=== PATIENT | female | born 1995 | race Two or more races ===

== ENCOUNTER 2022-07-16 13:40 | Inpatient (IN) | payer SELFPAY ==
[~2022-07-16] VITALS: Ht 154.9 cm; Wt 99.8 kg
--- NOTE | 2022-07-16 13:40 | NUR ---
BIBS FOR BODY PAIN. A/O X 3, TOLERATING WELL ON ROOM AIR.
--- NOTE | 2022-07-16 15:31 | NUR ---
URINE SAMPLE OBTAINED
[2022-07-16] MEDS ORDERED: HYDROMORPHONE 1 MG/1 ML DISP.SYRIN IV ONE ×3 (16:00→21:00)
[2022-07-16] MEDS ORDERED: oxyCODONE/APAP (5/325 MG) 1 UDTAB TABLET PO ONE (16:00)
[2022-07-16] MEDS ORDERED: oxyCODONE/APAP (5/325 MG) 1 UDTAB TABLET ONE (16:19)
--- NOTE | 2022-07-16 16:38 | NUR ---
Patient pending IV start with midline nurse
--- NOTE | 2022-07-16 16:54 | NUR ---
[facility] NURSE ETA 1800
[2022-07-16] MEDS ORDERED: ONDANSETRON 4 MG TAB.RAPDIS ONE (17:34)
[2022-07-16] MEDS ORDERED: ONDANSETRON 4 MG TAB.RAPDIS SL ONE (18:00)
[2022-07-16] MEDS ORDERED: HYDROMORPHONE 1 MG/1 ML DISP.SYRIN ONE ×2 (18:10→19:29)
[2022-07-16] MEDS ORDERED: diphenhydrAMINE HCL 50 MG/ML VIAL ONE ×3 (18:12→21:01)
[2022-07-16] MEDS ORDERED: ONDANSETRON HCL/PF 4 MG/2 ML VIAL IV ONE ×2 (18:30→21:00)
[2022-07-16] MEDS ORDERED: diphenhydrAMINE HCL 50 MG/ML VIAL IV ONE ×3 (18:30→21:00)
[2022-07-16] MEDS ORDERED: ONDANSETRON HCL/PF 4 MG/2 ML VIAL ONE ×2 (18:37→21:02)
[2022-07-16 18:41] LABS: ALBUMIN 3.8 g/dL (3.4-5.0); BILIRUBIN,TOTAL 0.2 mg/dL (0.2-1.0); CALCIUM, SERUM 9.7 mg/dL (8.5-10.1); CREATININE 0.6 mg/dL (0.6-1.3); MAGNESIUM 1.9 mg/dL (1.8-2.4); POTASSIUM 4.1 mmol/L (3.5-5.1); TOTAL PROTEIN, SERUM 8.4 g/dL (6.4-8.2)
--- NOTE | 2022-07-16 19:30 | NUR ---
Pt is noted in bed alert, responsive as report received from the off going RN that Pt came from home C/O Back, Leg and Hand pain and aslo Edema to Extimities with a Histpry off Sickle Cell. Pt care continue with Pain Mangement in progress.
[2022-07-16] MEDS ORDERED: HYDROMORPHONE INJ 2 MG/ML DISP.SYRIN ONE (21:02)
--- NOTE | 2022-07-16 21:10 | NUR ---
Pt remain full code with Benadyl 25mg , Dilaudid 1mg IVP and Zofran 4mg IVP given as ordered. Pt care continue as she will be reassessed for effectiveness while monitor closely.
[2022-07-16 21:12] LABS: BASOPHILS % (AUTO) 0.5 % (0.0-2.0); EOSINOPHILS % (AUTO) 0.2 % (0.0-6.0); HEMATOCRIT 30 % (33-45); HEMOGLOBIN 9.6 g/dL (11.5-14.8); LYMPHOCYTES # (AUTO) 2.3 K/uL (0.8-4.8); LYMPHOCYTES % (AUTO) 37.3 % (20.0-44.0); MEAN CORPUSCULAR HGB CONC 33 g/dl (31.0-36.0); MEAN CORPUSCULAR VOLUME 71 fL (82-100); MONOCYTES # (AUTO) 0.5 K/uL (0.1-1.30); MONOCYTES % (AUTO) 7.6 % (2.0-12.0); NEUTROPHILS # (AUTO) 3.4 K/uL (1.8-8.9); NEUTROPHILS % (AUTO) 54.4 % (43.0-81.0); PLATELET COUNT (AUTO) 404 K/uL (150-450); RED BLOOD CELL COUNT(AUTO) 4.19 MIL/uL (4.0-5.2); WHITE BLOOD COUNT (AUTO) 6.2 K/uL (4.3-11.0)
--- NOTE | 2022-07-16 21:54 | NUR ---
Pt care continue as she will be admitted with IVF 0.9NS [id number] therapy in progress as ordered.
[2022-07-16] MEDS ORDERED: IV NS 0.9% 1,000 ML IV ONE (22:00)
[2022-07-16] MEDS ORDERED: MORPHINE SULFATE INJ 2 MG/ML DISP.SYRIN IV PRN (22:00)
[2022-07-16] MEDS ORDERED: ACETAMINOPHEN 325 MG TABLET PO PRN (22:00)
[2022-07-16 22:03] LABS: LYMPHOCYTES % (MANUAL) 43 % (16-48); MONOCYTES % (MANUAL) 8 % (0-11.0); NEUTROPHILS % (MANUAL) 43 (42-76); REACTIVE LYMPHOCYTES 6 % (0-0)
--- NOTE | 2022-07-16 22:52 | NUR ---
RM 314-2
[2022-07-16] MEDS: IV NS 0.9% 1,000 ML IV SCH (23:56)
[2022-07-17] VITALS: BP 113/72
--- NOTE | 2022-07-17 00:11 | NUR ---
MS RN NOTE PER PATIENT, MORPHINE DOESN'T WORK FOR HER AND SHE USUALLY GET'S DILAUDID 2 MG IV, WELL BENADRYL AND ZANAX 2 MG PO FOR ANXIETY/SLEEP. CONTACTED PAEDIATRIC SURGEON MD SHANNON ROB REGARDING THIS, HOWEVER, HE STATED HE WILL NOT BE MAKING CHANGES TO PAIN MEDICATION ORDER OR ADDING ORDER FOR BENADRYL AND ZANAX. EXPLAINED THIS TO PATIENT AND SHE STATED THAT IF SHE'S ONLY GETTING MORPHINE SHE WILL NEED BENADRYL BECAUSE IT MAKES HER ITCHY AND GET A RASH, ALSO STATES SHE HASN'T BEEN ABLE TO TOLERATED ANYTHING PO WITHOUT NAUSEA. CONTACTED PAEDIATRIC SURGEON MD AGAIN, PER SHANNON CHANG ONLY ONE TIME ORDER OF BENADRYL 50 MG IV, ORDER VERIFIED
[2022-07-17] MEDS ORDERED: diphenhydrAMINE HCL 50 MG/ML VIAL IV ONE ×3 (00:15→18:00)
--- NOTE | 2022-07-17 00:25 | NUR ---
MS WIRE TESTER NOTE PATIENT ARRIVED AT ABOUT 2330, ALERT/ORIENTED X 4, PT ABLE TO MAKE NEEDS KNOWN. PATIENT STABLE ON RA, NO S/S OF DISTRESS OR SOB NOTED, BREATHING EVEN AND UNLABORED. PATIENT IV ACCESS ON RIGHT UPPER ARM PICC LINE INTACT AND FLUSHING WELL. PATIENT FULLY VACCINATED FOR COVID BUT PATIENT REFUSES FLU VACCINE. PATIENT BELONGINGS DOCUMENTED AND SHEET PLACED IN CHART. ORIENTED PATIENT TO ROOM AND HOW TO USE CALL LIGHT. PATIENT AMBULATORY WITH STEADY GAIT. PATIENT CONTINUES TO COMPLAIN ABOUT INPATIENT MEDICATIONS, STATED SHE WANTS TO TALK TO CHARGE AND COMPLAIN REGARDING CONTRACT ADMINISTRATION COORDINATOR MD BECAUSE HE WON'T APPROVED ORDER FOR DILAUDID, BENADRYL AND XANAX, CHARGE ZORAIDA SPOKE TO PATIENT. SAFETY MEASURES IN PLACE: CALL LIGHT WITHIN REACH, SIDE RAILS UP X 2, BED LOCKED IN LOWEST POSITION, BED ALARM ON. WILL CONTINUE TO MONITOR PATIENT
[2022-07-17] MEDS: ONDANSETRON HCL/PF 4 MG/2 ML VIAL IVP PRN ×3 (00:31→21:27)
[2022-07-17] MEDS: MORPHINE SULFATE INJ 4 MG/ML DISP.SYRIN IV PRN ×2 (00:31→04:32)
[2022-07-17] MEDS: ENOXAPARIN SODIUM 40 MG/0.4 ML DISP.SYRIN SQ SCH ×2 (00:34→21:22)
--- NOTE | 2022-07-17 03:55 | NUR ---
MS RN NOTE PATIENT C/O UNBEARABLE PAIN, WANTS NURSE TO ASK ATHLETIC INSTRUCTOR MD FOR MORE PAIN MEDICATIONS, EXPLAINED TO PATIENT THAT HER NEXT MORPHINE IS DUE AT 0431, PATIENT ADAMANT TO CONTACT DR. MANCERA ATHLETIC INSTRUCTOR SHANNON ROB, HE WILL NOT BE ADDING ANY PAIN MED ORDERS MORPHINE IS ALMOST DUE
[2022-07-17] MEDS ORDERED: ALPR2TAB2 PO (04:40)
[2022-07-17] MEDS ORDERED: OXYC-133 PO (04:40)
[2022-07-17] MEDS ORDERED: HYDR500C2 PO (04:40)
[2022-07-17] MEDS: IV NS 0.9% 1,000 ML IV SCH ×3 (05:28→18:34)
--- NOTE | 2022-07-17 06:24 | NUR ---
MS RN NOTE PATIENT SWABBED FOR MRSA BILATERAL NARES
--- NOTE | 2022-07-17 06:51 | NUR ---
MS RN CLOSING NOTE PATIENT AWAKE IN BED, ALERT/ORIENTED X 4, PT ABLE TO MAKE NEEDS KNOWN. PATIENT STABLE ON RA, NO S/S OF DISTRESS OR SOB NOTED, BREATHING EVEN AND UNLABORED. LEDA PICC LINE INTACT AND INFUSING NS @ 150 ML/HR. PATIENT AMBULATORY WITH STEADY GAIT TO BATHROOM. PATIENT UPSET THAT REGIONAL HR MANAGER MD DID NOT CHANGE PAIN MEDICATION TO DILAUDID AND THAT SHE HAS NO ORDER FOR XANAX AND BENADRYL, PT STATES SHE WANTS TO SPEAK TO SENIOR UI DESIGNER REGARDING THIS, FEELS MD IS BEING NEGLIGENT, NOTIFIED COLLEGE RECRUITER ZORAIDA WHO SPOKE TO PATIENT EARLIER. PATIENT REFUSED SKIN ASSESSMENT AND TO CHANGE INTO GOWN, STATED SHE HAS NO WOUNDS OR OPEN SKIN. MEDICATIONS GIVEN ORDERED, PT NEEDS MET THROUGHOUT SHIFT. SAFETY MEASURES IN PLACE: CALL LIGHT WITHIN REACH, SIDE RAILS UP X 2, BED LOCKED IN LOWEST POSITION. WILL ENDORSE TO DAYSHIFT RN FOR CONTINUITY OF CARE
--- NOTE | 2022-07-17 07:06 | NUR ---
MS RN OPENING NOTES RECEIVED PATIENT SLEEPING IN BED, A/Ox4 ABLE TO MAKE NEEDS KNOWN. ON ROOM AIR, NO S/S OF RESPIRATORY DISTRESS. IV ACCESS LEDA MIDLINE RUNNING NS@150 ML/HR, INTACT AND PATENT. CONTINENT HAS BATHROOM PRIVILEGES. NO S/S OF PAIN OR DISCOMFORT. SKIN UNABLE TO ACCESS, PATIENT IS REFUSING SKIN ASSESSMENT AT THIS TIME. SAFETY MEASURES IN PLACE: BED LOCKED AND IN LOWEST POSITION, HOB ELEVATED, SIDE RAILS UPx2, CALL LIGHT WITHIN REACH. WILL CONTINUE TO MONITOR.
[2022-07-17 08:00] VITALS: BP 104/73
[2022-07-17] MEDS: HYDROMORPHONE INJ 2 MG/ML DISP.SYRIN IV PRN ×4 (08:52→21:15)
--- NOTE | 2022-07-17 09:28 | NUR ---
RN NOTES PATIENT COMPLAINED OF PAIN 10/10 GENERALIZED. MD NOTIFIED OF PATIENT WANTING DILAUDID INSTEAD OF MORPHINE DUE TO MORPHINE CAUSING ITCHINESS. MD ORDERED PRN DILAUDID 2MG Q4H. PRN DILAUDID ADMINISTERED. WILL CONTINUE TO MONITOR.
[2022-07-17] MEDS ORDERED: HYDROCODONE/APAP 10/325MG TABLET PO PRN (12:30)
--- NOTE | 2022-07-17 12:34 | NUR ---
RN NOTES PATIENT REQUESTED MORE PAIN MEDICINE. EXPLAINED TO PATIENT THAT DILAUDID IS Q4 HOURS. PATIENT REQUESTED FOR IT TO BE CHANGED. MD NOTIFIED. ORDERED PERCOCET 5 MG FOR PATIENT. PAIN MEDICATION TAKEN FROM OMNICELL BUT PATIENT CHANGED HER MIND AND WANTED TO WAIT FOR DILAUDID. WILL CONTINUE TO MONITOR.
--- NOTE | 2022-07-17 13:39 | NUR ---
RN NOTES PATIENT COMPLAINED 8/10 PAIN, PRN DILAUDID ADMINISTERED. PATIENT COMPLAINED OF NAUSEA, PRN ZOFRAN ADMINISTERED. WILL CONTINUE TO MONITOR.
[2022-07-17 16:00] VITALS: BP 95/62
--- NOTE | 2022-07-17 18:14 | NUR ---
RN NOTES PATIENT COMPLAINED OF PAIN, PRN DILAUDID ADMINISTERED. PATIENT ALSO COMPLAINING OF ITCHINESS, MD NOTIFIED, ORDERED BENADRYL 25 MG ONE TIME IV. ADMINISTERED. WILL CONTINUE TO MONITOR.
--- NOTE | 2022-07-17 19:45 | NUR ---
RN Opening Notes Received pt in bed, awake, talking on phone, resting comfortably. AOx4, able to make needs known. On RA and tolerating well. No SOB noted. No s/sx of respiratory distress noted. IV access in LEDA Midline #18G running NS @ 150 mL/hr. Safety precautions in place: bed in lowest, locked position, siderails upX2, and brakes on. Table and call light within reach. All needs met at this time.
[2022-07-17 20:00] VITALS: BP 114/64
--- NOTE | 2022-07-17 20:54 | NUR ---
RN Notes Patient requesting pain medication while resting in bed watching videos on phone. Offered patient percocet but patient said "I cannot swallow anything." Made patient aware that dilaudid is not able to be given until 25 minutes. Patient agreeable.
--- NOTE | 2022-07-17 21:15 | NUR ---
TEJA Notes Administered morphine for pain 12/05 per order. VS WNL. Addendum: 07/18/22 at 0116 by MELISA MOON RN should say dilaudid not morphine
--- NOTE | 2022-07-17 21:21 | NUR ---
RN Notes Tried to administer lovenox to patient but she refused and said "I dont need that. I just need my pain medication." Educated on risk and benefits but still refused.
--- NOTE | 2022-07-17 21:45 | NUR ---
RN Notes Patient requested zofran. After administering zofran, patient told nurse "I am going to need 50 mg of benadryl IV because zofran makes me itchy." Dr. Valdez made aware. No new orders at this time.
[2022-07-18] MEDS: IV NS 0.9% 1,000 ML IV SCH ×4 (01:00→20:35)
[2022-07-18] MEDS: HYDROMORPHONE INJ 2 MG/ML DISP.SYRIN IV PRN ×6 (01:15→21:23)
--- NOTE | 2022-07-18 01:15 | NUR ---
RN Notes Administer dilaudid for pain per MD order. Patient refused percocet again. VS WNL.
--- NOTE | 2022-07-18 05:22 | NUR ---
RN Notes Administered dilaudid for pain per MD order. Patient refused percocet again because she "feels nauseous." VS WNL.
[2022-07-18] MEDS: ONDANSETRON HCL/PF 4 MG/2 ML VIAL IVP PRN ×4 (05:27→21:34)
--- NOTE | 2022-07-18 05:27 | NUR ---
RN Notes Patient requested zofran for nausea. Patient made aware that the doctor is not going to order benadryl for her itchiness and patient agreed to still get zofran.
--- NOTE | 2022-07-18 06:46 | NUR ---
RN Closing Notes Pt in bed, asleep, awakens to verbal stimuli. AOx4, able to make needs known. On RA and tolerating well. No SOB noted. No s/sx of respiratory distress noted. IV access in LEDA Midline #18G running NS @ 150 mL/hr. All orders carried out. All needs met. Pt kept clean and dry. Treated pain and nausea throughout shift. Safety precautions in place: bed in lowest, locked position, siderails upX2, and brakes on. Table and call light within reach. Will endorse to oncoming shift for TWYLA.
--- NOTE | 2022-07-18 08:17 | NUR ---
MS RN OPENING NOTES PATIENT IN BED RESTING. ALERT AND ORIENTED x4. ON RA, TOLERATING WELL WITH NO SOB OR RESPIRATORY DISTRESS NOTED. BREATHING EVEN AND UNLABORED. LEDA Midline #18G INTACT AND FLUSHING, RUNNING NS @ 150 mL/hr. ALL SAFETY PRECAUTIONS IN PLACE WITH BED IN LOWEST, LOCKED POSITION, SIDERAILS UP X 2, AND TABLE AND CALL LIGHT WITHIN REACH. WILL CONTINUE TO MONITOR.
--- NOTE | 2022-07-18 08:20 | NUR ---
RN NOTES BLOOD DRAWN FOR LAB WORK FROM MIDLINE.
[2022-07-18 08:24] VITALS: BP 119/69
[2022-07-18 08:40] LABS: BASOPHILS % (AUTO) 0.4 % (0.0-2.0); EOSINOPHILS % (AUTO) 1.3 % (0.0-6.0); HEMATOCRIT 27 % (33-45); HEMOGLOBIN 8.6 g/dL (11.5-14.8); LYMPHOCYTES # (AUTO) 2.3 K/uL (0.8-4.8); MEAN CORPUSCULAR HGB CONC 32 g/dl (31.0-36.0); MEAN CORPUSCULAR VOLUME 71 fL (82-100); MONOCYTES # (AUTO) 0.4 K/uL (0.1-1.30); MONOCYTES % (AUTO) 8.1 % (2.0-12.0); NEUTROPHILS # (AUTO) 2.2 K/uL (1.8-8.9); NEUTROPHILS % (AUTO) 44.2 % (43.0-81.0); PLATELET COUNT (AUTO) 323 K/uL (150-450); RED BLOOD CELL COUNT(AUTO) 3.81 MIL/uL (4.0-5.2); WHITE BLOOD COUNT (AUTO) 5.1 K/uL (4.3-11.0)
[2022-07-18] MEDS: HYDROXYUREA 500 MG CAPSULE PO SCH ×3 (08:49→09:04)
--- NOTE | 2022-07-18 09:04 | NUR ---
RN NOTE PATIENT REFUSED HYDROXYUREA CAPSULE STATING THAT SHE COULD NOT TAKE PO MEDICATION DUE TO NAUSEA.
[2022-07-18 09:18] LABS: CALCIUM, SERUM 8.3 mg/dL (8.5-10.1); CREATININE 0.6 mg/dL (0.6-1.3); POTASSIUM 3.8 mmol/L (3.5-5.1)
--- NOTE | 2022-07-18 09:51 | NUR ---
RN NOTE PATIENT REFUSED HYDROXYUREA CAPSULE STATING THAT SHE COULD NOT TAKE PO MEDICATION DUE TO NAUSEA.
[2022-07-18] MEDS: diphenhydrAMINE HCL 50 MG/ML VIAL IV PRN ×3 (10:26→21:40)
[2022-07-18] MEDS ORDERED: OXYC-133 PO (11:11)
[2022-07-18] MEDS ORDERED: PROM6.2516 PO (11:11)
--- NOTE | 2022-07-18 11:42 | NUR ---
RN NOTES PATIENT REQUESTED ANOTHER DOSE OF BENADRYL DUE TO ITCHING. MEDICATION ADMINISTERED WITH CUBA RUSS'S APPROVAL.
[2022-07-18] MEDS ORDERED: CODEINE/PROMETHAZINE HCL 5 ML UDC PO PRN (13:30)
[2022-07-18] MEDS ORDERED: ONDANSETRON HCL 4 MG/5 ML SOLUTION PO PRN (15:30)
[2022-07-18] MEDS ORDERED: diphenhydrAMINE HCL ELIX 25 MG/10 ML UDC PO PRN (15:30)
[2022-07-18 16:38] VITALS: BP 109/75
--- NOTE | 2022-07-18 17:22 | NUR ---
RN NOTE PATIENT GIVEN PO MEDICATION IN LIQUID FORM. WAS ABLE TO TOLERATE. REFUSED PO TABLET FOR PAIN.
--- NOTE | 2022-07-18 18:54 | NUR ---
MS RN CLOSING NOTES PATIENT IN BED ALERT AND ORIENTED x4. ON RA, TOLERATING WELL WITH NO SOB OR RESPIRATORY DISTRESS NOTED. BREATHING EVEN AND UNLABORED. LEDA MIDLINE #18G INTACT AND FLUSHING, RUNNING NS @ 150 mL/hr. ALL SAFETY PRECAUTIONS IN PLACE WITH BED IN LOWEST, LOCKED POSITION, SIDERAILS UP X 2, AND TABLE AND CALL LIGHT WITHIN REACH. WILL ENDORSE TO ONCOMING SHIFT FOR TWYLA.
--- NOTE | 2022-07-18 19:35 | NUR ---
MS RN OPENING NOTE RECEIVED PATIENT IN BED; AWAKE, ALERT AND ORIENTED x 4. ON ROOM AIR; TOLERATING WELL. NOT IN ANY FORM OF RESPIRATORY OR CARDIAC DISTRESS NOTED AT THIS TIME. NO C/O ANY PAIN OR DISCOMFORT. WITH RIGHT UA MIDLINE 18g; PATENT AND INTACT INFUSING WITH NS 1L RUNNING @ 150 ML/HR; FLUSHES WELL. ABLE TO MAKE NEEDS KNOWN. SAFETY PRECAUTIONS IMPLEMENTED: CALL LIGHT AND TABLE WITHIN REACH, SIDE RAILS UP X 2, BED IN LOWEST LOCKED POSITION. WILL CONTINUE PLAN OF CARE.
[2022-07-18 20:00] VITALS: BP 123/66
--- NOTE | 2022-07-18 21:23 | NUR ---
RN NOTE PATIENT COMPLAINED OF GENERALIZED PAIN 8/10 PAIN SCALE. PRN DILAUDID INJ 2 MG GIVEN IV ORDERED. KEPT COMFORTABLE IN BED. WILL CONTINUE TO MONITOR.
[2022-07-18] MEDS: ENOXAPARIN SODIUM 40 MG/0.4 ML DISP.SYRIN SQ SCH (21:30)
--- NOTE | 2022-07-18 21:30 | NUR ---
RN NOTE LOVENOX 40 MG HELD; PATIENT REFUSED TO RECEIVE MED. PER PATIENT "I'M AMBULATORY, I DON'T NEED IT". EXPLAINED RISKS AND BENEFITS, STILL REFUSED TO RECEIVE MED.
[2022-07-19] MEDS: HYDROMORPHONE INJ 2 MG/ML DISP.SYRIN IV PRN ×4 (01:42→16:38)
--- NOTE | 2022-07-19 01:42 | NUR ---
RN NOTE PATIENT C/O GENERALIZED PAIN 8/10 PAIN SCALE. PRN DILAUDID INJ 2 MG GIVEN IV ORDERED. NEEDS ATTENDED. WILL CONTINUE TO MONITOR
[2022-07-19] MEDS: IV NS 0.9% 1,000 ML IV SCH ×3 (03:39→17:00)
[2022-07-19] MEDS: diphenhydrAMINE HCL 50 MG/ML VIAL IV PRN ×4 (03:44→21:50)
[2022-07-19] MEDS: ONDANSETRON HCL/PF 4 MG/2 ML VIAL IVP PRN ×4 (03:45→21:49)
--- NOTE | 2022-07-19 06:45 | NUR ---
MS RN CLOSING NOTE PATIENT IN BED; AWAKE, A/O x 4. STABLE ON ROOM AIR. IN NO ACUTE DISTRESS. NO C/O ANY PAIN OR DISCOMFORT. WITH RIGHT UA MIDLINE 18g; PATENT AND INTACT INFUSING WITH NS 1L RUNNING @ 150 ML/HR; FLUSHES WELL. ALL NEEDS ATTENDED. SAFETY PRECAUTIONS MAINTAINED: CALL LIGHT AND TABLE WITHIN REACH, SIDE RAILS UP X 3, BED IN LOWEST LOCKED POSITION. ENDORSED TO MORNING SHIFT FOR TWYLA.
--- NOTE | 2022-07-19 07:25 | NUR ---
RN OPENING NOTE RECEIVED PATIENT RESTING COMFORTABLY IN BED, AWAKE, A/O X4, VERBALLY RESPONSIVE AND ABLE TO MAKE NEEDS KNOWN. NO SIGNS OF ACUTE DISTRESS NOTED. ON ROOM AIR, TOLERATING WELL. NO SOB NOTED, BREATHING EVEN AND UNLABORED. NOTED WITH MIDLINE ON RIGHT UPPER ARM #18G, INTACT AND PATENT, WITH NS RUNNING AT 150ML/HR. SAFETY MEASURE IN PLACE. BED IN LOW AND LOCKED POSITION, SIDE RAILS UP X2, CALL LIGHT PLACED WITHIN EASY REACH. WILL CONTINUE TO MONITOR PATIENT.
--- NOTE | 2022-07-19 08:20 | NUR ---
RN NOTE FRAME OPENER CAME TO DRAW BLOOD FROM PATIENT BUT PATIENT REFUSED AT THIS TIME, PT TOLD THE FRAME OPENER TO COME BACK IN AN HOUR.
[2022-07-19] MEDS: HYDROXYUREA 500 MG CAPSULE PO SCH (09:00)
--- NOTE | 2022-07-19 10:28 | NUR ---
RN NOTE PATIENT REFUSED HYDROXYUREA CAPSULE STATING THAT SHE COULD NOT TAKE PO MEDICATION AT THIS TIME DUE TO NAUSEA ALTHOUGH ANTIEMETIC MEDS WAS ALREADY GIVEN.
--- NOTE | 2022-07-19 10:38 | NUR ---
RN NOTE DILAUDID 2 MG IVP GIVEN FOR C/O 10/10 GENERALIZED PAIN. WILL CONTINUE TO MONITOR PATIENT.
[2022-07-19] MEDS: oxyCODONE/APAP (5/325 MG) 1 UDTAB TABLET PO PRN ×2 (11:53→20:26)
[2022-07-19] MEDS: ALPRAZOLAM 1 MG TABLET PO PRN (14:28)
[2022-07-19 16:49] VITALS: BP 123/80
--- NOTE | 2022-07-19 18:37 | NUR ---
RN CLOSING NOTE PATIENT RESTING IN BED, AWAKE, WATCHING MOVIE ON HER PHONE. NO SIGNS OF ACUTE DISTRESS NOTED. REMAINS STABLE ON ROOM AIR, NO SOB NOTED, BREATHING EVEN AND UNLABORED. WITH MIDLINE ON RIGHT UPPER ARM #18G, INTACT AND PATENT, WITH NS RUNNING AT 150ML/HR. PATIENT STILL WITH C/O NAUSEA, NO VOMITING NOTED. ANTIEMETICS, ANTIPRURITIC AND PAIN MEDICATIONS GIVEN ORDERED. PATIENT ABLE TO TOLERATE ORAL PERCOCET BUT PER PATIENT IT DIDN'T HELP MUCH. STILL PREFERS TO HAVE DILAUDID IVP. SAFETY MEASURE MAINTAINED. BED IN LOW AND LOCKED POSITION, SIDE RAILS UP X2, CALL LIGHT PLACED WITHIN EASY REACH. WILL ENDORSE TO NEXT SHIFT FOR CONTINUITY OF CARE.
--- NOTE | 2022-07-19 19:30 | NUR ---
MS RN OPENING NOTE RECEIVED PATIENT IN BED; AWAKE, ALERT AND ORIENTED x 4. ON ROOM AIR; WELL TOLERATED. AFEBRILE. BREATHING EVEN AND NONLABORED. NO C/O ANY PAIN OR DISCOMFORT. WITH RIGHT UA MIDLINE 18g; INTACT AND PATENT INFUSING WITH NS 1L RUNNING @ 150 ML/HR; FLUSHING WELL. ABLE TO VERBALIZE NEEDS. SAFETY MEASURES IMPLEMENTED: CALL LIGHT AND TABLE WITHIN REACH, SIDE RAILS UP X 2, BED IN LOWEST LOCKED POSITION. WILL CONTINUE PLAN OF CARE.
[2022-07-19 20:00] VITALS: BP 98/68
--- NOTE | 2022-07-19 20:26 | NUR ---
RN NOTE PATIENT COMPLAINED OF GENERALIZED PAIN 8/10 PAIN SCALE. PRN PERCOCET 5/325MG 1 TAB PO GIVEN ORDERED. KEPT COMFORTABLE IN BED. WILL CONTINUE TO MONITOR.
[2022-07-19] MEDS: ENOXAPARIN SODIUM 40 MG/0.4 ML DISP.SYRIN SQ SCH (22:00)
--- NOTE | 2022-07-19 22:54 | NUR ---
RN NOTE LOVENOX 40 MG HELD; PATIENT REFUSED TO RECEIVE MED. PATIENT VERBALIZED "I DON'T NEED IT."
[2022-07-20] MEDS: IV NS 0.9% 1,000 ML IV SCH ×2 (00:17→06:36)
[2022-07-20] MEDS: HYDROMORPHONE INJ 2 MG/ML DISP.SYRIN IV PRN ×3 (00:51→13:53)
--- NOTE | 2022-07-20 00:51 | NUR ---
RN NOTE PATIENT C/O GENERALIZED PAIN 8/10 PAIN SCALE. PRN DILAUDID INJ 2 MG GIVEN IV ORDERED. WILL CONTINUE TO MONITOR
[2022-07-20] MEDS: ALPRAZOLAM 1 MG TABLET PO PRN ×2 (02:42→11:28)
[2022-07-20] MEDS: ONDANSETRON HCL/PF 4 MG/2 ML VIAL IVP PRN ×2 (03:59→14:05)
[2022-07-20] MEDS: diphenhydrAMINE HCL 50 MG/ML VIAL IV PRN ×2 (04:02→14:05)
[2022-07-20] MEDS: oxyCODONE/APAP (5/325 MG) 1 UDTAB TABLET PO PRN ×2 (04:28→10:41)
--- NOTE | 2022-07-20 07:27 | NUR ---
MS RN OPENING NOTE RECEIVED PATIENT IN BED, AWAKE. A/O x 4, ABLE TO MAKE NEEDS KNOWN. NO C/O PAIN OR DISCOMFORT AT THIS TIME. ON ROOM AIR, BREATHING EVEN AND NONLABORED. WITH MIDLINE IN LEDA #18G WITH NS 1L RUNNING @ 150 ML/HR, FLUSHING WELL. SAFETY MEASURES IMPLEMENTED: CALL LIGHT AND TABLE WITHIN REACH, SIDE RAILS UP X 2, BED IN LOWEST LOCKED POSITION. WILL CONTINUE TO MONITOR.
--- NOTE | 2022-07-20 07:55 | NUR ---
RN NOTES PATIENT VERBALIZED THAT SHE HAS BILATERAL LEG PAIN WITH THE SCALE OF 8/10 AND ASKED FOR DILAUDID, DILAUDID IV 2MG/ML PRN GIVEN AT 07:53. WILL CONTINUE TO MONITOR.
[2022-07-20 08:00] VITALS: BP 132/77
[2022-07-20] MEDS: HYDROXYUREA 500 MG CAPSULE PO SCH (08:47)
[2022-07-20] MEDS ORDERED: IV NS 0.9% 1,000 ML IV PRN (08:58)
[2022-07-20] MEDS ORDERED: ONDANSETRON HCL/PF 4 MG/2 ML VIAL IV ONE (09:30)
[2022-07-20] MEDS ORDERED: diphenhydrAMINE HCL 50 MG/ML VIAL IV ONE (09:30)
--- NOTE | 2022-07-20 09:35 | NUR ---
RN NOTES PATIENT VERBALIZED THAT SHE NEEDS ZOFRAN AND BENADRYL. MEDS DUE AT 1000, INFORMED APPLICATOR SPRAYER KE IF I CAN GIVE MEDICATION EARLIER. APPLICATOR SPRAYER AGREED TO GIVE MED EARLIER. ZOFRAN INJ 4MG/2ML AND BENADRYL INJ 25MG/0.5ML GIVEN AT 09:33. WILL CONTINUE TO MONITOR.
--- NOTE | 2022-07-20 12:00 | NUR ---
RN NOTES PATIENT VERBALIZED SHE WANTS HER XANAX, XANAX 2MG TAB PRN GIVEN AT 11:28. WILL CONTINUE TO MONITOR.
[2022-07-20] MEDS ORDERED: HYDR500C2 PO (12:25)
[2022-07-20] MEDS ORDERED: ALPR2TAB2 PO (12:25)
--- NOTE | 2022-07-20 15:20 | NUR ---
MS PLANT CONTROL OPERATOR NOTE PATIENT DISCHARGED TO HOME, IN STABLE CONDITION. A/O x 4, ON ROOM AIR, BREATHING EVEN AND NONLABORED, TOLERATED WELL. ABLE TO MAKE NEEDS KNOWN. PAIN MEDICINE AND ZOFRAN GIVEN BEFORE DISCHARGE. MIDLINE IN LEDA #18G REMOVED, DRY AND CLEAN DRESSING APPLIED ON SITE. NO BLEEDING NOTED. ALL BELONGINGS ACCOUNTED FOR. DISCHARGE INSTRUCTIONS GIVEN TO PATIENT, VERBALIZED UNDERSTANDING. NAME ARM BAND REMOVED. MD AND CHARGE NURSE AWARE OF DISCHARGE. PT LEFT THE UNIT AMBULATORY AT 1515.
== END 2022-07-20 15:20 | disposition home or self-care (01) | DRG 812 ==
LOC: ER 13:42 → MED 23:07
PROVIDERS: ADMIT Nurse Practitioner Acute Care; ATTEND Nurse Practitioner Acute Care
PROC: 05HB33Z Insertion of Infusion Device into Right Basilic Vein, Percutaneous Approach (ICD-10-PCS; principal; 2022-07-16)
DX: D57.00 Hb-SS disease with crisis, unspecified (principal); Z68.41 Body mass index [BMI] 40.0-44.9, adult; E46 Unspecified protein-calorie malnutrition; Z20.822 Contact with and (suspected) exposure to COVID-19; D63.8 Anemia in other chronic diseases classified elsewhere; E66.01 Morbid (severe) obesity due to excess calories; Z88.8 Allergy status to other drugs, medicaments and biological substances
CPT/HCPCS: 36415; 80048-TC; 80053-TC; 83735-TC; 85025-TC; 85045-TC; 87081-TC; 93970-TC; A4223; C9803; G0378; J1170; J1200; J1650; J2270; J2405; J7030; Q0162; Q0163